=== PATIENT | female | born 1995 | race Caucasian/White ===

== ENCOUNTER 2023-02-04 06:00 | Inpatient (IN) | payer BC ==
[2023-02-04] MEDS ORDERED: CARBOPROST TROMETHAMINE 250 MCG/ML 1 ML AMP IM PRN (18:00)
[2023-02-04] MEDS ORDERED: miSOPROStoL 200 MCG TAB PO PRN (18:00)
[2023-02-04] MEDS ORDERED: TERBUTALINE 1 MG/ML VIAL SQ PRN (18:00)
[2023-02-04] MEDS ORDERED: TRANEXAMIC 1,000 MG/100ML-NACL 1,000 MG in EMPTY BAG 1 BAG IV PRN (18:00)
[2023-02-04] MEDS ORDERED: OXYTOCIN 30 UNITS/500 ML NS 30 UNIT in SALINE 1 500ML.BAG IV SCH (18:00)
[2023-02-04] MEDS ORDERED: METHYLERGONOVINE 0.2 MG/ML 1 ML AMP IM PRN (18:00)
[2023-02-04] MEDS ORDERED: OXYTOCIN 10 UNIT/ML 1 ML VIAL IM PRN (18:00)
[2023-02-04] MEDS ORDERED: LIDOCAINE 0.5% (PF) 5 MG/ML (50 ML SDV) SQ PRN (18:00)
--- NOTE | 2023-02-04 20:02 | P.HPOB ---
History of Present Illness H&P Date: 02/04/23 Chief Complaint: Medical induction of labor for gestational hypertension Ms. Harper is a 27 year old at 37 weeks and 5 days (with EDC of 02/20/2023 by 8 week US not consistent with LMP) for chronic hypertension on Labetalol 100 mg BID. Growth US at 32 weeks estimated the fetus to be measuring in the 68%ile for gestational age. Maternal serologies: blood type O positive, antibody negative, rubella immune, VDRL non-reactive, HBsAg negative, HIV negative, GBS negative, 1 hour GTT 153 followed by normal 3 hour GTT. TDap administered on 12/30/2022. Past Medical History Past Medical History: Hypertension History of Any Multi-Drug Resistant Organisms: None Reported Additional Past Surgical History / Comment(s): wisdom teeth removed Past Anesthesia/Blood Transfusion Reactions: No Reported Reaction Past Psychological History: Anxiety Smoking Status: Never smoker - Past Family History Father Family Medical History: Hypertension Medications and Allergies Home Medications Medication Instructions Recorded Confirmed Type Aspirin 81 mg PO DAILY 02/04/23 02/04/23 History Citalopram Hydrobromide [CeleXA] 1 tab PO DAILY 02/04/23 02/04/23 History Labetalol [Trandate] 1 tab PO BID 02/04/23 02/04/23 History Pnv No.154/Iron Fum/Folic Acid 1 tab PO DAILY 02/04/23 02/04/23 History [ Plus Vitamin Tablet] Allergies Allergy/AdvReac Type Severity Reaction Status Date / Time sulfamethoxazole Allergy Rash/Hives Verified 02/04/23 17:27 [From Bactrim] trimethoprim [From Bactrim] Allergy Rash/Hives Verified 02/04/23 17:27 Exam Vital Signs Temp Pulse Resp BP 02/04/23 17:19 97.2 F L 95 18 159/95 Intake and Output 02/04/23 02/04/23 02/04/23 06:59 14:59 22:59 Other: Weight 96.615 kg Focused physical exam is performed. This is a healthy-appearing in no apparent distress. Abdomen is gravid and non-tender. Cervical exam is closed, lo ng, and high. Extremities are non-edematous and non-tender. heart tones are reactive on NST. Assessment and Plan Assessment: 27 year old at 37 weeks and 5 days presenting to L&D for mIOL for cHTN on medication Plan: Admit, NPO, repeat PIH labs (blood pressures nearly severe range on admission), mIVF, IV nubain prn for pain, cooks catheter placed with 60cc in each balloon x 12 hours. Close monitoring of patient and continuous monitoring of the fetus. Time with Patient: Less than 30
[2023-02-04 20:20] LABS: Basophils % (A) 0 %; Eosinophils # (A) 0.2 k/uL (0-0.7); Eosinophils % (A) 1 %; HCT 36.4 % (34.0-46.0); HGB 12.4 gm/dL (11.4-16.0); Lymphocytes # (A) 2.1 k/uL (1.0-4.8); Lymphocytes % (A) 18 %; MCH 32.1 pg (25.0-35.0); MCV 94.2 fL (80.0-100.0); Mean Platelet Volume 7.9; Monocytes # (A) 0.8 k/uL (0-1.0); Monocytes % (A) 7 %; Neutrophils # (A) 8.6 k/uL (1.3-7.7); Neutrophils % (A) 73 %; Platelet Count 356 k/uL (150-450); RBC 3.86 m/uL (3.80-5.40); RDW 14.1 % (11.5-15.5); WBC 11.9 k/uL (3.8-10.6)
[2023-02-04 21:44] LABS: ALT 19 U/L (4-34); AST 26 U/L (14-36); African American GFR (CKD) >90 (>60 ml/min/1.73 sqM); Albumin 3.5 g/dL (3.5-5.0); Alkaline Phosphatase 157 U/L (38-126); Anion Gap 7 mmol/L; Blood Urea Nitrogen 6 mg/dL (7-17); Calcium 9.4 mg/dL (8.4-10.2); Carbon Dioxide 21 mmol/L (22-30); Chloride 104 mmol/L (98-107); Glucose 110 mg/dL (74-99); Non-African American GFR(CKD) >90 (>60 ml/min/1.73 sqM); Potassium 3.8 mmol/L (3.5-5.1); Sodium 132 mmol/L (137-145); Total Bilirubin 0.9 mg/dL (0.2-1.3); Total Protein 6.2 g/dL (6.3-8.2); Uric Acid 4.1 mg/dL (3.7-7.4)
[2023-02-05] MEDS: NALBUPHINE 10 MG/ML (10 ML MDV) IV PRN ×2 (00:07→05:18)
[2023-02-05] MEDS: LACTATED RINGERS 1,000 ML IV SCH ×4 (00:08→19:00)
[2023-02-05 04:02] LABS: Creatinine,Urine Random 41.1 mg/dL; Protein/Creatinine Ratio,Urine 0.365
[2023-02-05] MEDS ORDERED: ROPIVACAINE 5 MG/ML 20 ML AMPULE ONE (10:36)
[2023-02-05] MEDS ORDERED: fentaNYL (PF) 50 MCG/ML 5 ML AMP ONE (10:36)
[2023-02-05] MEDS ORDERED: SODIUM CHLORIDE 0.9% 100 ML BAG ONE (10:36)
[2023-02-05] MEDS ORDERED: ROPIVACAINE 225 MG, fentaNYL (PF). 450 MCG in SODIUM CHLORIDE 0.9% 171 ML EPIDURAL ONE (11:05)
[2023-02-05] MEDS ORDERED: diphenhydrAMINE 50 MG/ML 1 ML VIAL IVP ONE (22:44)
[2023-02-06] MEDS ORDERED: AZITHROMYCIN 500 MG in SODIUM CHLORIDE 0.9% 250 ML IVPB STA (02:37)
[2023-02-06] MEDS ORDERED: OXYTOCIN 10 UNIT/ML 1 ML VIAL ONE (02:45)
[2023-02-06] MEDS ORDERED: .MORPHINE SULFATE (INJ) 10 MG/ML SYRINGE ONE (02:45)
[2023-02-06] MEDS ORDERED: ONDANSETRON 4 MG/2 ML VIAL ONE (02:45)
[2023-02-06] MEDS ORDERED: MORPHINE SULFATE (PF) 0.3 MG/0.3 ML SYR ONE (02:45)
[2023-02-06] MEDS ORDERED: KETOROLAC 15 MG/ML 1 ML VIAL ONE (02:45)
[2023-02-06] MEDS ORDERED: LIDOCAINE 2% (PF) 20 MG/ML 5 ML VIAL ONE (02:45)
[2023-02-06] MEDS ORDERED: ZOLPIDEM 5 MG TAB PO PRN (03:34)
[2023-02-06] MEDS ORDERED: LANOLIN CREAM 5 GM TUBE TOPICAL PRN (03:34)
[2023-02-06] MEDS ORDERED: diphenhydrAMINE 25 MG CAP PO PRN (03:34)
[2023-02-06] MEDS ORDERED: ONDANSETRON 4 MG/2 ML VIAL IVP PRN (03:34)
[2023-02-06] MEDS ORDERED: NALOXONE 0.4 MG/ML 1 ML VIAL IV PRN (03:34)
[2023-02-06] MEDS ORDERED: diphenhydrAMINE 50 MG CAP PO PRN (03:34)
[2023-02-06] MEDS ORDERED: diphenhydrAMINE 50 MG/ML 1 ML VIAL IVP PRN ×2 (03:34)
[2023-02-06] MEDS ORDERED: METOCLOPRAMIDE 5 MG/ML 2 ML VIAL IVP PRN (03:34)
[2023-02-06] MEDS ORDERED: OXYTOCIN 30 UNITS/500 ML NS 30 UNIT in SALINE 1 500ML.BAG IV SCH (03:45)
--- NOTE | 2023-02-06 03:45 | P.OP ---
Date of Procedure: 02/06/23 Preoperative Diagnosis: 1. Term IUP at 38 weeks 2. Chronic Hypertension on Antihypertensives 3. Arrest of active phase of labor Postoperative Diagnosis: 1. Term IUP at 38 weeks 2. Chronic Hypertension on Antihypertensives 3. Arrest of active phase of labor 4. Occiput posterior presentation Procedure(s) Performed: Primary Lower Transverse Section Implants: None Anesthesia: epidural Surgeon: Gillian Cross Manager Online #1: Ashley Easley Estimated Blood Loss (ml): 690 IV fluids (ml): 1,000 Urine output (ml): 100 (clear) Pathology: none sent Condition: stable Disposition: floor Indications for Procedure: This is a 27-year-old at 38 weeks who presented to labor and delivery for medical induction of labor for chronic hypertension on antihypertensives. Oxytocin and Cook's catheter were used to begin the induction in the patient progressed to 7 cm. However, the patient had arrest of active phase of labor at 7 cm for 4 hours without any change. section was recommended for maternal and well-being at this time. The risks of were discussed with the patient including risk of infection, bleeding, and damage to surrounding structures such as bladder/bowel/ureters. The patient understands these risks and desired to proceed with section. Operative Findings: Viable female in occiput posterior presentation with apgars of 7/8 and weight of 7#0oz. Normal uterus, bilateral fallopian tubes, and ovaries. Description of Procedure: The patient was taken to the operating room where spinal anesthesia was found to be adequate. 2 grams of Ancef and 500 milligrams of Azithromycin were given for infection prophylaxis. She was vaginally and abdominally prepared. She was draped in the dorsal supine position with a leftward tilt. A Pfannenstiel skin incision was made with the scalpel. The incision was carried down to the fascia. The fascia was incised and extended laterally with Pascal scissors. The superior aspect of the fascia was grasped with Eliza clamps. The underlying rectus muscle was dissected off sharply with Pascal scissors. In a similar fashion, the inferior aspect of the fascia was elevated with Eliza clamps and the rectus muscle and pyramidalis were dissected off. Excellent hemostasis was achieved with the bovie. The rectus muscle was in the midline down to the level of the pubic symphysis. Pre-peritoneal fatty tissue was bluntly dissected to expose the peritoneum. The peritoneum was found to be free of adherent bowel and entered sharply with Pascal scissors. The peritoneal incision was extended superiorly and inferiorly to the bladder reflection with good visualization of the bladder. The bladder blade was inserted and vesicouterine peritoneum was identified. Intraabdominal survey revealed scant, clear peritoneal fluid and the thinned-out lower uterine segment. The vesicouterine peritoneum was opened with scissors and the bladder flap was developed. The bladder blade was repositioned to keep the bladder out of the operative field. The lower uterine segment was incised with a scalpel. Clear amniotic fluid was noted. The uterine incision was extended bluntly with lateral and upward traction. The fetus was in occiput posterior position. The head was elevated out of the pelvis with special attention paid to avoid using the uterine incision as a fulcrum. Gentle fundal pressure was applied once the head was brought into the incision. The infant was delivered with no difficulty. The mouth and nose were suctioned with a bulb. The cord was clamped and cut. The infant was handed off to the general studies program chair. IV oxytocin was initiated to facilitate uterine contractions. The placenta was delivered intact with manual massage of uterine fundus. The uterus was then exteriorized and the inside of the uterus was gently wiped with a lap sponge to assure complete removal of placental membranes. The uterine incision was closed with a 0-Polysorb suture in a running locked fashion. A second imbricating layer of 0-Polysorb was placed along the hysterotomy. The ovaries and tubes were found to be normal. The uterus, tubes, and ovaries were then gently returned to the abdominal cavity. The blood clots and fluid were wiped out of the abdomen and pelvis with moist laparotomy sponges. The uterine incision was reinspected and e xcellent hemostasis was noted. The fascial layer was closed with a 0-Vicryl suture. The subcutaneous tissue was reapproximated with 2-0 Plain Gut. The skin was closed dewayne. The patient tolerated the procedure well. All the counts were correct times two. The patient was taken to the recovery room in a stable condition.
[2023-02-06] MEDS ORDERED: CITRIC ACID-SODIUM CITRATE 15 ML CUP PO ONE (04:14)
[2023-02-06] MEDS ORDERED: TRANEXAMIC 1,000 MG/100ML-NACL 1,000 MG in EMPTY BAG 1 BAG IV PRN (04:14)
[2023-02-06] MEDS ORDERED: miSOPROStoL 200 MCG TAB PO PRN (04:14)
[2023-02-06] MEDS: ACETAMINOPHEN TAB 500 MG TAB PO SCH ×3 (05:42→18:45)
[2023-02-06] MEDS: LACTATED RINGERS 1,000 ML IV SCH ×3 (05:45→20:59)
[2023-02-06] MEDS: SENNOSIDES-DOCUSATE SODIUM 1 EACH TAB PO SCH ×2 (09:29→20:16)
[2023-02-06] MEDS: KETOROLAC 15 MG/ML 1 ML VIAL IVP SCH ×3 (09:29→20:16)
[2023-02-07] MEDS: KETOROLAC 15 MG/ML 1 ML VIAL IVP SCH ×3 (05:50→14:31)
[2023-02-07] MEDS: ACETAMINOPHEN TAB 500 MG TAB PO SCH ×4 (05:51→22:11)
[2023-02-07 06:18] LABS: Basophils % (A) 0 %; Eosinophils # (A) 0.2 k/uL (0-0.7); Eosinophils % (A) 1 %; HCT 32.6 % (34.0-46.0); HGB 10.9 gm/dL (11.4-16.0); Lymphocytes # (A) 1.9 k/uL (1.0-4.8); Lymphocytes % (A) 11 %; MCH 30.5 pg (25.0-35.0); MCHC 33.4 g/dL (31.0-37.0); MCV 91.2 fL (80.0-100.0); Mean Platelet Volume 7.8; Monocytes # (A) 0.8 k/uL (0-1.0); Monocytes % (A) 5 %; Neutrophils # (A) 13.7 k/uL (1.3-7.7); Neutrophils % (A) 81 %; Platelet Count 280 k/uL (150-450); RBC 3.58 m/uL (3.80-5.40); RDW 14.8 % (11.5-15.5); WBC 16.9 k/uL (3.8-10.6)
[2023-02-07] MEDS: SENNOSIDES-DOCUSATE SODIUM 1 EACH TAB PO SCH ×2 (08:13→22:11)
[2023-02-07] MEDS: SIMETHICONE 80 MG CHEWABLE PO PRN ×2 (08:30→18:46)
--- NOTE | 2023-02-07 11:14 | P.PNOBGPC ---
Subjective - Subjective Principal diagnosis: Postop day 1, primary Interval history: Patient is doing well . She is ambulating and voiding without difficulty, lochia is mild to moderate. She is breast-feeding. She states her pain is well-controlled. Patient reports: Reports appetite normal, Reports voiding normally, Reports pain well controlled, Reports ambulating normally [place]: doing well, nursing well Objective - Vital Signs Latest vital signs: Vital Signs Temp Pulse Resp BP Pulse Ox 02/07/23 08:00 97.3 F L 70 18 132/83 98 02/06/23 23:26 97.5 F L 80 16 122/81 98 02/06/23 20:00 98.2 F 77 16 117/77 97 02/06/23 16:00 97.8 F 70 14 135/84 02/06/23 12:00 98.0 F 98 14 136/78 Intake and Output 02/06/23 02/07/23 02/07/23 22:59 06:59 14:59 Output Total 300 345 Balance -300 -345 Output: Urine 300 345 Other: Voiding Method Toilet # Voids 1 1 - Exam Extremities: Present: normal, edema Abdomen: Present: normal appearance, soft Incision: Present: normal, dry, intact Uterus: Present: normal, firm - Labs Labs: Abnormal Lab Results - Last 24 Hours (Table) 02/07/23 Range/Units 05:43 WBC 16.9 H (3.8-10.6) k/uL RBC 3.58 L (3.80-5.40) m/uL Hgb 10.9 L (11.4-16.0) gm/dL Hct 32.6 L (34.0-46.0) % Neutrophils # 13.7 H (1.3-7.7) k/uL Assessment and Plan (1) 38 weeks gestation of Current Visit: Yes Status: Acute Code(s): Z3A.38 - 38 WEEKS GESTATION OF SNOMED Code(s): 85289851 (2) Arrest of dilation, delivered, current hospitalization Current Visit: Yes Status: Acute Code(s): O62.1 - SECONDARY UTERINE INERTIA SNOMED Code(s): 26681169 (3) Chronic hypertension Current Visit: Yes Status: Acute Code(s): I10 - ESSENTIAL (PRIMARY) HYPERTENSION SNOMED Code(s): 87573016 (4) Delivery by section Current Visit: Yes Status: Acute Code(s): PXB7427 - SNOMED Code(s): 151416188 Plan: 27-year-old 1 now para 1 status post primary for arrest of dilation. Patient is doing well postoperatively. Plan to continue routine postoperative care and it has been discharge home tomorrow.
[2023-02-07] MEDS: IBUPROFEN 600 MG TAB PO SCH ×2 (12:37→18:50)
[2023-02-08] MEDS: IBUPROFEN 600 MG TAB PO SCH ×2 (00:28→06:42)
[2023-02-08] MEDS: ACETAMINOPHEN TAB 500 MG TAB PO SCH ×2 (04:03→10:15)
[2023-02-08] MEDS: SENNOSIDES-DOCUSATE SODIUM 1 EACH TAB PO SCH (08:03)
[2023-02-08 08:10] VITALS: BP 138/80; PULSE 82; RESP 16; TEMP 97.7
--- NOTE | 2023-02-08 10:08 | P.DS ---
Providers Date of admission: 02/04/23 17:05 Expected date of discharge: 02/08/23 Attending physician: Gillian Cross MD Primary care physician: Stated None - Discharge Diagnosis(es) (1) 38 weeks gestation of Current Visit: Yes Status: Acute (2) Arrest of dilation, delivered, current hospitalization Current Visit: Yes Status: Acute (3) Chronic hypertension Current Visit: Yes Status: Acute (4) Delivery by section Current Visit: Yes Status: Acute Hospital Course: This is a 27-year-old 1 para 0 that presented to labor and delivery at 30 weeks of gestation for induction of labor secondary to chronic hypertension on antihypertensives. A shunt had a cooks catheter placed and patient progressed to 7 cm. Patient had arrest of active phase of labor at 7 cm for 4 hours without any cervical change. section was recommended and patient agreed. was performed without difficulty. Viable female infant in occiput posterior presentation was delivered weight of 7 lbs. 0 oz. Patient has done well postoperatively. On this postoperative day #2 she is ambulating and voiding without difficulty. She tolerating regular diet without nausea or vomiting. She states her pain is well-controlled. She denies any concerns. Patient Condition at Discharge: Good Plan - Discharge Summary New Discharge Prescriptions: No Action Aspirin 81 mg PO DAILY Pnv No.154/Iron Fum/Folic Acid [ Plus Vitamin Tablet] 1 tab PO DAILY Labetalol [Trandate] 1 tab PO BID Citalopram Hydrobromide [CeleXA] 1 tab PO DAILY Discharge Medication List Aspirin 81 mg PO DAILY 02/04/23 [History] Citalopram Hydrobromide [CeleXA] 1 tab PO DAILY 02/04/23 [History] Labetalol [Trandate] 1 tab PO BID 02/04/23 [History] Pnv No.154/Iron Fum/Folic Acid [ Plus Vitamin Tablet] 1 tab PO DAILY 02/04/23 [History] Follow up Appointment(s)/Referral(s): Gillian Cross MD [STAFF PHYSICIAN] - 2 Weeks Patient Instructions/Handouts: (DC), (GEN) Discharge Disposition: HOME SELF-CARE
--- NOTE | 2023-02-08 18:01 | P.PN ---
Progress Note - Text 02/07/232043 27-year-old female status post with the Duramorph why the epidural catheter. Patient seen and evaluated for postop pain control, patient had a VAS of 1 with no complains of nausea vomiting or pruritus. Doing very well
== END 2023-02-08 11:22 | disposition home or self-care (01) | DRG 788 ==
LOC: 4FBP 17:05
PROVIDERS: ADMIT Obstetrics & Gynecology; ATTEND Obstetrics & Gynecology
PROC: 3E033VJ Introduction of Other Hormone into Peripheral Vein, Percutaneous Approach (ICD-10-PCS; 2023-02-06)
PROC: 00HU33Z Insertion of Infusion Device into Spinal Canal, Percutaneous Approach (ICD-10-PCS; 2023-02-06)
PROC: 3E0R3BZ Introduction of Anesthetic Agent into Spinal Canal, Percutaneous Approach (ICD-10-PCS; 2023-02-06)
PROC: 10D00Z1 Extraction of Products of Conception, Low, Open Approach (ICD-10-PCS; principal; 2023-02-06 03:19)
DX: O10.92 Unspecified pre-existing hypertension complicating childbirth (principal); O62.0 Primary inadequate contractions; O62.1 Secondary uterine inertia; Z37.0 Single live birth; Z28.311 Partially vaccinated for COVID-19; Z82.49 Family history of ischemic heart disease and other diseases of the circulatory system; Z79.82 Long term (current) use of aspirin; Z79.899 Other long term (current) drug therapy; Z88.1 Allergy status to other antibiotic agents; Z3A.38 38 weeks gestation of pregnancy
CPT/HCPCS: 80053; 82570; 84156; 84550; 85025; 86850; 86900; 86901

== ENCOUNTER 2025-03-13 16:39 | Emergency (ER) | payer BC ==
[2025-03-13 16:49] VITALS: RESP 20
[2025-03-13 17:10] LABS: Bilirubin,Urine Negative (Negative); Blood,Urine Small (Negative); Color,Urine Colorless; Glucose,Urine (UA) Negative (Negative); Ketones,Urine Negative (Negative); Leukocyte Esterase,Urine Negative (Negative); Nitrite,Urine Negative (Negative); PH, Urine 6.5 (5.0-8.0); Protein,Urine Negative (Negative); RBC,Urine 1 /hpf (0-5); Specific Gravity,Urine 1.005 (1.001-1.035); Squamous Epithelial Cell,Urine <1 /hpf (0-4); Urobilinogen,Urine <2.0 mg/dL (<2.0)
--- NOTE | 2025-03-13 17:11 | ED ---
Female Urogenital HPI - General Chief complaint: Vaginal Bleeding Stated complaint: 8 wks and bleeding Time Seen by Provider: 03/13/25 16:51 Source: patient, RN notes reviewed Mode of arrival: ambulatory Limitations: no limitations - History of Present Illness Initial comments: This is a 29-year-old female who presents to the emergency department for pelvic pain and vaginal bleeding. Patient is approximately 8 weeks and . States that she started to have some spotting earlier today with mild cramping. She has nausea and vomiting that has been ongoing with this . She has her first appointment with an PATIENT INTAKE REPRESENTATIVE tomorrow. - Related Data Home Medications Medication Instructions Recorded Confirmed Aspirin 81 mg PO DAILY 02/04/23 02/04/23 Citalopram Hydrobromide [CeleXA] 1 tab PO DAILY 02/04/23 02/04/23 Labetalol [Trandate] 1 tab PO BID 02/04/23 02/04/23 Pnv No.154/Iron Fum/Folic Acid 1 tab PO DAILY 02/04/23 02/04/23 [ Plus Vitamin Tablet] Allergies Allergy/AdvReac Type Severity Reaction Status Date / Time sulfamethoxazole Allergy Rash/Hives Verified 03/13/25 16:49 [From Bactrim] trimethoprim [From Bactrim] Allergy Rash/Hives Verified 03/13/25 16:49 Review of Systems ROS Statement: Those systems with pertinent positive or pertinent negative responses have been documented in the HPI. ROS Other: All systems not noted in ROS Statement are negative. Past Medical History Past Medical History: Hypertension History of Any Multi-Drug Resistant Organisms: None Reported Past Surgical History: Section Additional Past Surgical History / Comment(s): wisdom teeth removed Past Anesthesia/Blood Transfusion Reactions: No Reported Reaction Past Psychological History: Anxiety Smoking Status: Never smoker Past Alcohol Use History: None Reported Past Drug Use History: None Reported - Past Family History Father Family Medical History: Hypertension General Exam Limitations: no limitations General appearance: alert, in no apparent distress Head exam: Present: atraumatic, normocephalic, normal inspection Respiratory exam: Present: normal lung sounds bilaterally. Absent: respiratory distress, wheezes, rales, rhonchi, stridor Cardiovascular Exam: Present: regular rate, normal rhythm Neurological exam: Present: alert, oriented X3, CN II-XII intact Psychiatric exam: Present: normal affect, normal mood Skin exam: Present: warm, dry, intact, normal color. Absent: rash Course Vital Signs 03/13/25 03/13/25 16:46 19:03 Temperature 97.9 F 98.0 F Pulse Rate 90 80 Respiratory 20 20 Rate Blood Pressure 154/95 135/89 O2 Sat by Pulse 99 99 Oximetry Medical Decision Making - Medical Decision Making This is a 29-year-old female who presents to the emergency department for vaginal bleeding in . Was pt. sent in by a medical professional or institution? @ -No Did you speak to anyone other than the patient for history? @ -No Did you review nursing and triage notes? @ -Yes, and I agree, it is accurate with regards to the patient's symptoms. Were old charts reviewed? @ -No Differential Diagnosis? @ -Differential Vaginal Bleeding: Spontaneous , threatened , molar , ectopic , incompetent cervix, placenta previa, uterine rupture, dysfunctional uterine bleeding, hemorrhage, uterine fibroids, malignancy, coagulopathy, PI D, cervicitis, adenomyosis, vaginal trauma, this is not meant to be an all- inclusive list. EKG interpreted by me (3pts min.)? @ -Not obtained X-rays interpreted by me (1pt min.)? @ -Not obtained CT interpreted by me (1pt min.)? @ -Not obtained U/S interpreted by me (1pt. min.)? @ -Obstetrics ultrasound obtained. My interpretation identifies a single live intrauterine . What testing was considered but not performed? (CT, X-rays, U/S, labs)? Why? @ -None What meds were considered but not given? Why? @ -None Did you discuss the management of the patient with other professionals? @ -No Did you reconcile home meds? @ -No Was smoking cessation discussed for >3mins.? @ -No Was critical care preformed (if so, how long)? @ -No Were there social determinants of health that impacted care today? How? (Homelessness, low income, unemployed, alcoholism, drug addiction, transportation, low edu. Level, literacy, decrease access to med. care, prison, rehab)? @ -No Was there de-escalation of care discussed even if they declined? (Discuss DNR or withdrawal of care, Hospice)? @ -No What co-morbidities impacted this encounter? (DM, HTN, Smoking, COPD, CAD, Cancer, CVA, Hep., AIDS, mental health diagnosis, sleep apnea, morbid obesity)? @ - Was patient admitted / discharged? @ -Discharged. Lab work demonstrates mild leukocytosis and is otherwise unremarkable. Urinalysis demonstrates a small amount of blood but is negative for signs of infection. Patient is Rh+ and no RhoGAM is indicated. Obstetrics ultrasound demonstrates a single live intrauterine measuring approximately 8 weeks gestation with a small subchorionic hemorrhage. Findings reviewed with the patient in that the bleeding is likely related to the subchorionic hemorrhage. She has an appointment with her PATIENT INTAKE REPRESENTATIVE tomorrow and will follow-up as scheduled for reevaluation. Advised Tylenol as needed for discomfort and making sure she is taking a vitamin. Patient discharged home in stable condition. Case discussed with ED attending Dr. Ramsey. Return precautions reviewed in depth, the patient is instructed to return to the emergency department with any new, worsening, or concerning symptoms. Patient verbalized understanding. Undiagnosed new problem with uncertain prognosis? @ -None Drug Therapy requiring intensive monitoring for toxicity (Heparin, Nitro, Insulin, Cardizem)? @ -None Were any procedures done? @ -None Diagnosis/symptom? @ -Vaginal bleeding in , subchorionic hemorrhage Acute, or Chronic, or Acute on Chronic? @ -Acute Uncomplicated (without systemic symptoms) or Complicated (systemic symptoms)? @ -Uncomplicated Side effects of treatment? @ -None Exacerbation, Progression, or Severe Exacerbation] @ -Not applicable Poses a threat to life or bodily function? @ -No - Lab Data Result diagrams: 03/13/25 17:12 03/13/25 17:12 Lab Results 03/13/25 03/13/25 03/13/25 Range/Units 17:00 17:11 17:12 WBC 13.13 H (4.50-10.00) 10*3/uL RBC 4.87 (4.10-5.20) 10*6/uL Hgb 14.5 (12.0-15.0) g/dL Hct 41.9 (37.2-46.3) % MCV 86.0 (80.0-97.0) fL MCH 29.8 (27.0-32.0) pg MCHC 34.6 (32.0-37.0) g/dL Plt Count 367 (140-440) 10*3/uL MPV 9.0 L (9.5-12.2) fL Immature Gran % (Auto) 0.3 % Neutrophils % 73.6 % Lymphocytes % 18.1 % Monocytes % 6.2 % Eosinophils % 1.4 % Basophils % 0.4 % Immature Gran # 0.04 (0.00-0.04) 10*3/uL Neutrophils # 9.67 H (1.80-7.70) 10*3/uL Lymphocytes # 2.38 (0.90-5.00) 10*3/uL Monocytes # 0.81 (0.20-1.00) 10*3/uL Eosinophils # 0.18 (0.04-0.35) 10*3/uL Basophils # 0.05 (0.00-0.10) 10*3/uL Sodium (137-145) mmol/L Potassium (3.5-5.1) mmol/L Chloride (98-107) mmol/L Carbon Dioxide (22-30) mmol/L Anion Gap mmol/L BUN (7-17) mg/dL Creatinine (0.52-1.04) mg/dL Est GFR (CKD-EPI)AfAm (>60 ml/min/1.73 sqM) Est GFR (CKD-EPI)NonAf (>60 ml/min/1.73 sqM) Glucose (74-99) mg/dL Calcium (8.4-10.2) mg/dL Total Bilirubin (0.2-1.3) mg/dL AST (14-36) U/L ALT (4-34) U/L Alkaline Phosphatase (38-126) U/L Total Protein (6.3-8.2) g/dL Albumin (3.5-5.0) g/dL HCG, Quant mIU/mL Urine Color Colorless Urine Appearance Clear (Clear) Urine pH 6.5 (5.0-8.0) Ur Specific [place] 1.005 (1.001-1.035) Urine Protein Negative (Negative) Urine Glucose (UA) Negative (Negative) Urine Ketones Negative (Negative) Urine Blood Small H (Negative) Urine Nitrite Negative (Negative) Urine Bilirubin Negative (Negative) Urine Urobilinogen <2.0 (<2.0) mg/dL Ur Leukocyte Esterase Negative (Negative) Urine RBC 1 (0-5) /hpf Ur Squamous Epith Cells <1 (0-4) /hpf Blood Type O Positive Blood Type Recheck O Pos Bld Type Recheck Status No Antibody Screen NEGATIVE Spec Expiration Date 03/16/2025 - 231003/13/25 Range/Units 17:12 WBC (4.50-10.00) 10*3/uL RBC (4.10-5.20) 10*6/uL Hgb (12.0-15.0) g/dL Hct (37.2-46.3) % MCV (80.0-97.0) fL MCH (27.0-32.0) pg MCHC (32.0-37.0) g/dL Plt Count (140-440) 10*3/uL MPV (9.5-12.2) fL Immature Gran % (Auto) % Neutrophils % % Lymphocytes % % Monocytes % % Eosinophils % % Basophils % % Immature Gran # (0.00-0.04) 10*3/uL Neutrophils # (1.80-7.70) 10*3/uL Lymphocytes # (0.90-5.00) 10*3/uL Monocytes # (0.20-1.00) 10*3/uL Eosinophils # (0.04-0.35) 10*3/uL Basophils # (0.00-0.10) 10*3/uL Sodium 136 L (137-145) mmol/L Potassium 3.8 (3.5-5.1) mmol/L Chloride 105 (98-107) mmol/L Carbon Dioxide 20 L (22-30) mmol/L Anion Gap 11 mmol/L BUN 8 (7-17) mg/dL Creatinine 0.51 L (0.52-1.04) mg/dL Est GFR (CKD-EPI)AfAm >90 (>60 ml/min/1.73 sqM) Est GFR (CKD-EPI)NonAf >90 (>60 ml/min/1.73 sqM) Glucose 89 (74-99) mg/dL Calcium 9.5 (8.4-10.2) mg/dL Total Bilirubin 0.6 (0.2-1.3) mg/dL AST 26 (14-36) U/L ALT 32 (4-34) U/L Alkaline Phosphatase 87 (38-126) U/L Total Protein 7.5 (6.3-8.2) g/dL Albumin 4.6 (3.5-5.0) g/dL HCG, Quant 239739.0 mIU/mL Urine Color Urine Appearance (Clear) Urine pH (5.0-8.0) Ur Specific [place] (1.001-1.035) Urine Protein (Negative) Urine Glucose (UA) (Negative) Urine Ketones (Negative) Urine Blood (Negative) Urine Nitrite (Negative) Urine Bilirubin (Negative) Urine Urobilinogen (<2.0) mg/dL Ur Leukocyte Esterase (Negative) Urine RBC (0-5) /hpf Ur Squamous Epith Cells (0-4) /hpf Blood Type Blood Type Recheck Bld Type Recheck Status Antibody Screen Spec Expiration Date - Radiology Data Radiology results: report reviewed, image reviewed Disposition Clinical Impression: Vaginal bleeding during , Subchorionic hematoma Disposition: HOME SELF-CARE Instructions (If sedation given, give patient instructions): Subchorionic Hemorrhage (ED) Additional Instructions: Return to the emergency department with any new, worsening, or concerning symptoms. Follow up with your PATIENT INTAKE REPRESENTATIVE as scheduled. Is patient prescribed a controlled substance at d/c from ED?: No Referrals: Cira Navarro PAC [REFERRING] - 1-2 days Time of Disposition: 18:49
[2025-03-13 17:25] LABS: Basophils # (A) 0.05 10*3/uL (0.00-0.10); Basophils % (A) 0.4 %; Eosinophils # (A) 0.18 10*3/uL (0.04-0.35); Eosinophils % (A) 1.4 %; HCT 41.9 % (37.2-46.3); HGB 14.5 g/dL (12.0-15.0); Lymphocytes # (A) 2.38 10*3/uL (0.90-5.00); Lymphocytes % (A) 18.1 %; MCH 29.8 pg (27.0-32.0); MCHC 34.6 g/dL (32.0-37.0); MCV 86.0 fL (80.0-97.0); Monocytes # (A) 0.81 10*3/uL (0.20-1.00); Monocytes % (A) 6.2 %; Neutrophils # (A) 9.67 10*3/uL (1.80-7.70); Neutrophils % (A) 73.6 %; Platelet Count 367 10*3/uL (140-440); RBC 4.87 10*6/uL (4.10-5.20); RDW 13.5 % (11.5-14.5); WBC 13.13 10*3/uL (4.50-10.00)
[2025-03-13 17:50] LABS: ALT 32 U/L (4-34); AST 26 U/L (14-36); African American GFR (CKD) >90 (>60 ml/min/1.73 sqM); Albumin 4.6 g/dL (3.5-5.0); Alkaline Phosphatase 87 U/L (38-126); Anion Gap 11 mmol/L; Blood Urea Nitrogen 8 mg/dL (7-17); Calcium 9.5 mg/dL (8.4-10.2); Carbon Dioxide 20 mmol/L (22-30); Chloride 105 mmol/L (98-107); Glucose 89 mg/dL (74-99); Non-African American GFR(CKD) >90 (>60 ml/min/1.73 sqM); Potassium 3.8 mmol/L (3.5-5.1); Sodium 136 mmol/L (137-145); Total Protein 7.5 g/dL (6.3-8.2)
--- NOTE | 2025-03-13 17:52 | US ---
EXAMINATION TYPE: Transabdominal DATE OF EXAM: 03/13/2025 5:39 PM COMPARISON: NONE CLINICAL INDICATION: Female, 29 years old with history of Vaginal bleeding, 8 weeks ; patient 8 weeks , spotting and slight cramping TECHNIQUE: Transabdominal (TA) with grayscale and color Doppler imaging including first trimester pre gnancy. FINDINGS: EXAM MEASUREMENTS: GESTATIONAL AGE / DATING Physician Established: Not yet established Dates by LMP: (8 weeks/5 days) EDC: 10/18/2025 Dates by First Scan: No previous this is first scan Dates by Current Scan for: (8 weeks/5 days) EDC: 10/18/2025 MATERNAL ANATOMY Uterus: 10.8 x 5.4 x 6.4cm Right Ovary: 2.2 x 1.9 x 1.4cm Left Ovary: 2.8 x 3.1 x 2.7cm Post CDS / Adnexa: wnl Presence of free fluid: not seen Presence of corpus luteal cyst: There is a 2.0 x 1.8 x 1.8cm anechoic area seen Presence of subchorionic bleed: There is a 1.8 x 1.5 x 0.9cm hypoechoic area seen to the right of the gestational sac GESTATION / SURVEY CRL: 2.1cm (8 weeks/5 days) Gestational Sac morphology: Normal Yolk Sac (normal less than 6mm): 3mm Cardiac Activity/Heart Rate: 163 bpm Rhythm: Normal IUP: Viable IUP Date of LMP: unknown lmp Beta HcG (if available): Not available at this time IMPRESSION: 1. Single live intrauterine with calculated ultrasound age of 8 weeks 5 days by crown rump length with an estimated date of delivery of 10/18/2025. 2. Small subchorionic hemorrhage. Close clinical surveillance is recommended. [facility], , 03/13/2025 5:50 PM
[2025-03-13 19:04] VITALS: BP 135/89; PULSE 80; TEMP 98
[2025-03-13 19:17] LABS: HCG,Quantitative Serum 106298.0 mIU/mL
== END 2025-03-13 19:03 | disposition home or self-care (01) ==
LOC: EC 16:39
DX: O20.8 Other hemorrhage in early pregnancy (principal); Z88.1 Allergy status to other antibiotic agents; Z88.2 Allergy status to sulfonamides; Z3A.08 8 weeks gestation of pregnancy
CPT/HCPCS: 36415; 76801; 80053; 81001; 84702; 85025; 86850; 86900; 86901; 99284